=== PATIENT | female | born 1940 | race African-American/Black ===

== ENCOUNTER 2018-04-29 06:42 | Emergency (ER) | payer OTHER ==
[~2018-04-29] VITALS: Ht 167.6 cm; Wt 57.0 kg
[~2018-04-29 06:42] MED LIST: CLON0.1T PO; MINO2.5T2 PO; NIFE60TA64 PO; REQ2 GT; SEVE800T8 PO; TIOT4MIS2 IH
[2018-04-29] MEDS ORDERED: METHYLPREDNISOLONE SOD SUCC 125 MG/2 ML VIAL IV STA (07:28)
[2018-04-29] MEDS ORDERED: ALBUTEROL (0.083%) 2.5MG/3ML NEB HHN STA (07:28)
[2018-04-29] MEDS ORDERED: IPRATROPIUM BROMIDE (0.02%) 0.5MG/2.5ML NEB HHN STA (07:28)
[2018-04-29] MEDS ORDERED: MAGNESIUM 2 G PREMIX 50 ML IV STA (07:28)
[2018-04-29 07:49] LABS: BASOPHILS % 0.1 % (0.0-2.0); HEMATOCRIT. 35.2 % (36.0-48.0); HEMOGLOBIN. 11.3 g/dL (12.0-16.0); LYMPHOCYTES % 11.7 % (20.0-50.0); MEAN CORPUSCULAR HEMOGLOBIN 28.8 pg (28.0-32.0); MEAN CORPUSCULAR VOLUME 89.5 fL (81.0-99.0); MEAN PLATELET VOLUME 8.5 fl (7.4-10.4); MONOCYTES % 8.2 % (2.0-8.0); PLATELET 184 x1000/uL (130-400); RED BLOOD CELL COUNT 3.93 mill/uL (4.2-5.4); RED CELL DISTRIBUTION WIDTH 17.5 % (11.6-14.6)
[2018-04-29 07:55] LABS: CHLORIDE 100 mEq/L (98-107)
[2018-04-29] MEDS ORDERED: HYDROMORPHONE HCL/PF 2MG/ML CPJ IV PRN (10:30)
[2018-04-29] MEDS ORDERED: IPRATROPIUM/ALBUTEROL 0.5-3(2.5)MG/3ML NEB HHN SCH (10:30)
[2018-04-29] MEDS ORDERED: ACETAMINOPHEN 650MG/20.3ML UDC GT PRN (10:30)
[2018-04-29] MEDS ORDERED: ONDANSETRON HCL 4MG/2ML INJ IV PRN (10:30)
[2018-04-29] MEDS ORDERED: ENOXAPARIN 40MG/0.4ML SYR SUBCUT SCH (10:30)
[2018-04-29] MEDS ORDERED: CLONIDINE 0.1MG TABLET PO PRN (10:30)
[2018-04-29] MEDS ORDERED: LORAZEPAM 2MG/ML CPJ IV PRN (10:30)
[2018-04-29] MEDS ORDERED: BUDESONIDE 0.5MG/2ML NEB HHN SCH (11:00)
[2018-04-29] MEDS ORDERED: ROPINIROLE HCL 1MG TABLET PO PRN (11:15)
[2018-04-29] MEDS ORDERED: SEVELAMER CARBONATE 800 MG TABLET PO SCH (13:00)
[2018-04-29] MEDS ORDERED: IPRATROPIUM BROMIDE (0.02%) 0.5MG/2.5ML NEB HHN SCH (13:00)
[2018-04-29] MEDS ORDERED: IPRATROPIUM/ALBUTEROL 0.5-3(2.5)MG/3ML NEB ONE (15:58)
[2018-04-29 17:20] LABS: CREATINE KINASE MB FRACTION 3.7 ng/mL (0.5-3.6)
[2018-04-29] MEDS ORDERED: CLONIDINE 0.1MG TABLET PO NR (20:00)
[2018-04-29 20:02] LABS: T4 FREE 0.98 ng/dL (0.76-1.46)
[2018-04-29 21:48] VITALS: BP 177/78
[2018-04-30] MEDS ORDERED: NIFEDIPINE XL 60MG TAB PO SCH (09:00)
== END 2018-04-29 21:53 | disposition short-term general hospital (02) ==
LOC: ER 06:59 → EDBEDREQTM 09:24 → EDBEDREQ 09:24 → EDBEDREQTM 10:49 → EDBEDREQ 10:49 → ENRESERV 20:03 → CANRESERV 20:03 → ER 21:53 → CANBEDREQ 04-30 16:23
DX: I12.0 Hypertensive chronic kidney disease with stage 5 chronic kidney disease or end stage renal disease (principal); J44.9 Chronic obstructive pulmonary disease, unspecified; N18.6 End stage renal disease; M62.82 Rhabdomyolysis; R00.0 Tachycardia, unspecified; D63.1 Anemia in chronic kidney disease; G25.81 Restless legs syndrome; E21.3 Hyperparathyroidism, unspecified; Z88.6 Allergy status to analgesic agent; Z99.2 Dependence on renal dialysis; Z88.0 Allergy status to penicillin; Z79.899 Other long term (current) drug therapy
CPT/HCPCS: 36415; 71045; 80053; 82550; 82553; 83880; 84439; 84443; 84481; 84484; 85025; 87804; 93005; 94640; 94644; 96365; 96375; 99285; J2930; J3475; J7611; J7620